=== PATIENT | female | born 1955 | race Caucasian/White ===

== ENCOUNTER → 2016-10-30 | Outpatient (CLI) | payer MEDICARE ==
[~2016-10-30] MED LIST: /DULO30CA OR; HYDR25TA6 OR; OXYC10TA97 OR; PERC5TAB8 OR; SOMA350T OR; TRAZ50TA OR; XANA0.5T OR
--- NOTE | 2016-10-31 10:18 | DEXA ---
AP SPINE L1 - L4 1.055 -1.1 0.1 LT FEMUR TOTAL 0.773 -1.9 -0.9 RT FEMUR TOTAL 0.764 -1.9 -1.0 TOTAL BODY TOTAL OTHER DUAL FEMUR FRAX* ASSESSMENT Risk factors: Premature menopause, adult fracture. 10 year probability of fracture Major osteoporotic fracture 21.2 % Hip fracture 3.2 % COMMENTS: There is low bone density of the spine and hips. The density of the spine has decreased 19.2% since the initial exam on 02/2009. The spine density has decreased 2.2% since the most recent exam on 10/2014. The density of the left hip has decreased 8.3% since the initial exam on 02/2009. Density of the left hip has increased 0.8% since the most recent exam on 10/2014. The density of the right hip has decreased 9.6% since the initial exam on 2008. The density of the right hip has increased 1.3% since the most recent exam on 2014. FOLLOW-UP: Recommendation for the next bone density exam: 2 years. KENNY
== END | disposition home or self-care (01) ==
LOC: M WHC 11:09
PROVIDERS: ATTEND Nurse Practitioner Family
DX: C50.919 Malignant neoplasm of unspecified site of unspecified female breast (principal); M85.9 Disorder of bone density and structure, unspecified

== ENCOUNTER → 2016-11-06 | Outpatient (REF) | payer MEDICARE | END | disposition home or self-care (01) | LOC: M LAB REF 13:08 | PROVIDERS: ATTEND Internal Medicine Medical Oncology | DX: C50.919 Malignant neoplasm of unspecified site of unspecified female breast (principal) ==

== ENCOUNTER → 2017-01-01 | Outpatient (REF) | payer MEDICARE ==
[2017-01-01 12:44] LABS: CREATININE FOR GFR 1.23 MG/DL (0.55-1.02); GLOMERULAR FILTRATION RATE 47.4 (>45)
== END ==
LOC: M LABDRAW1 11:46
PROVIDERS: ATTEND Orthopaedic Surgery
DX: M75.42 Impingement syndrome of left shoulder (principal)

== ENCOUNTER → 2017-01-17 | Outpatient (REF) | payer MEDICARE ==
[2017-01-17 14:21] LABS: BASO % 0.3 % (0.0-1.0); EOS # 0.1 K/mm3 (0.0-0.50); EOS % 2.9 % (0.0-3.0); LARGE UNSTAINED CELL # 0.1 K/mm3 (0.0-0.4); LARGE UNSTAINED CELL % 1.7 % (0.0-4.0); LYMPH # 0.9 K/mm3 (1.5-4.5); LYMPH % 20.2 % (24.0-44.0); MEAN CORPUSCULAR HEMOGLOBIN 32.1 pg (27.0-33.0); MEAN CORPUSCULAR HGB CONC 33.7 g/dl (32.0-36.5); MEAN CORPUSCULAR VOLUME 95.3 fl (80.0-96.0); MONO # 0.3 K/mm3 (0.0-0.8); MONO % 6.8 % (0.0-5.0); NEUTROPHILS # 2.9 K/mm3 (1.8-7.7); NEUTROPHILS % 68.1 % (36.0-66.0); PLATELET COUNT, AUTOMATED 196 k/mm3 (150-450); WHITE BLOOD COUNT 4.2 K/mm3 (4.0-10.0)
[2017-01-17 14:56] LABS: ERYTHROCYTE SEDIMENTATION RATE 12 mm/hr (0-30)
[2017-01-19 00:06] LABS: Lyme Disease IgG/IgM Antibodie <0.91 ISR (0.00-0.90); Lyme Disease IgM Ab Quantitati <0.80 index (0.00-0.79)
== END ==
LOC: M LABDRAW1 13:07
PROVIDERS: ATTEND Orthopaedic Surgery
DX: M75.42 Impingement syndrome of left shoulder (principal); Z79.899 Other long term (current) drug therapy

== ENCOUNTER → 2018-09-01 | Outpatient (CLI) | payer MEDICARE | LOC: M RAD 09:37 | DX: C50.119 Malignant neoplasm of central portion of unspecified female breast (principal); M54.5 Low back pain | CPT/HCPCS: 78306 ==

== ENCOUNTER → 2018-12-16 | Outpatient (REF) | payer MEDICARE ==
[~2018-12-16] MED LIST changes: +ALPR2TAB3 PO; +AZEL1SPR3 NARES; +DULC5TAB PO; +HYDR-4514 PO; +LETR2.5T2 PO; +LOSA50TA88 PO; +MELO15TA28 PO; +MULTCAP PO; +TRAZ1TAB14 PO; +VENL75CA47 PO; +VITA500064 PO; +[UNRECOGNIZED DRUG - CODE] PO
[2018-12-18 14:22] LABS: HPV HYBRID CAPTURE II Negative (Negative)
== END ==
LOC: M LAB REF 17:28
PROVIDERS: ATTEND Family Medicine
DX: Z12.4 Encounter for screening for malignant neoplasm of cervix (principal); Z11.51 Encounter for screening for human papillomavirus (HPV); N95.2 Postmenopausal atrophic vaginitis
CPT/HCPCS: 87624; G0123

== ENCOUNTER → 2019-02-03 | Outpatient (CLI) | payer MEDICARE ==
[~2019-02-03] MED LIST changes: -/DULO30CA OR; +CYMB1CAP5 OR; +VITA500075 PO; -[UNRECOGNIZED DRUG - CODE] PO
--- NOTE | 2019-02-03 16:00 | REPMRS ---
Patient History The patient states she had a clinical breast exam in 09/2018. Patient is postmenopausal, has history of breast cancer at age 58, has history of cancer in the right breast at age 58, and had previous chemotherapy at age 58. No known family history of cancer. Malignant excisional biopsy of the right breast, 2013. Radiation therapy of the right breast, 2013. Taking letrozole for 4 years. Digital Woman Screen Mammo: February 03, 2019 - Exam #: [id number] Bilateral CC and MLO view(s) were taken. Technologist: Tania Whitney, Technologist Prior study comparison: February 02, 2018, bilateral digital mammo screening bilat, performed at [facility]. January 13, 2017, bilateral digital woman screen mammo, performed at [facility]. January 12, 2016, bilateral digital woman screen mammo, performed at [facility]. FINDINGS: The breast tissue is heterogeneously dense. This may lower the sensitivity of mammography. There is a needle biopsy marker clip again noted in the upper outer quadrant of the left breast. There is a moderate amount of heterogeneously dense fibroglandular tissue which is fairly symmetric. There is no interval development of dominant mass, architectural distortion, or clustered microcalcification typical of malignancy. There has been no change in the appearance of the mammogram from the prior studies. 3-D tomosynthesis shows no additional findings. Assessment: BI-RADS/ACR category 2 mammogram. Benign Findings. Recommendation Routine screening mammogram of both breasts in 1 year (for women over age 40). This mammogram was interpreted with the aid of an FDA-approved computer-aided dectection system. Electronically Signed By: Magnus Castellanos MD 02/03/19 [id number]
--- NOTE | 2019-02-05 11:22 | DEXA ---
AP SPINE L1 - L4 1.113 -0.7 0.7 LT FEMUR TOTAL 0.674 -2.6 -1.6 LT NECK 0.633 -2.9 -1.6 RT FEMUR TOTAL 0.674 -2.6 -1.6 RT NECK 0.705 -2.4 -1.0 TOTAL BODY TOTAL OTHER COMMENTS: Normal bone densitometry of the spine. There is osteoporosis of the hips. The density of the spine has decreased 14.8% since the initial exam on 03/09/2009. The spine density has increased 5.5% since the most recent exam on 10/30/2016. The density of the left hip has decreased 20.0% since the initial exam on 03/09/2009. The density of the left hip has decreased 12.8% since the most recent exam on 10/30/2016. The density of the right hip has decreased 20.2% since the initial exam on 03/09/2009. The density of the right hip has decreased 11.8% since the most recent exam on 10/30/2016. FOLLOW-UP: Recommendation for the next bone density exam: 2 years. KENNY
== END ==
LOC: M WHC 10:46
PROVIDERS: ATTEND Internal Medicine Medical Oncology
DX: Z12.31 Encounter for screening mammogram for malignant neoplasm of breast (principal); M81.0 Age-related osteoporosis without current pathological fracture

== ENCOUNTER → 2019-03-16 | Outpatient (REF) | payer MEDICARE | LOC: M LAB REF 17:31 | PROVIDERS: ATTEND Family Medicine | DX: D48.5 Neoplasm of uncertain behavior of skin (principal) ==

== ENCOUNTER → 2019-05-31 | Outpatient (REF) | payer MEDICARE ==
[~2019-05-31] MED LIST changes: +FLON1SPR NARES
== END ==
LOC: M LAB LCGH 15:02
PROVIDERS: ATTEND Nurse Practitioner Family
DX: D48.9 Neoplasm of uncertain behavior, unspecified (principal)

== ENCOUNTER → 2019-08-05 | Outpatient (CLI) | payer MEDICARE ==
[~2019-08-05] MED LIST changes: +E-Z-GAS II EFFERVESCENT PACKET (SODIUM BICARB./CITRIC ACID/SIMETHICONE) As Ordered ONE; +E-Z-HD 98% w/w 340GM SUSP BTL As Ordered ONE; +E-Z-PAQUE 96% w/w SUSP 176GM BTL As Ordered ONE
--- NOTE | 2019-08-05 18:28 | REP ---
Examination Requested: Esophagram Barium Swallow Reason For Exam/Comment: Gastroesophageal reflux Esophagram: The procedure was performed AMADA Osborne, under the direct supervision of Dr. Castellanos. The images were reviewed with Dr. Castellanos. A single PA chest x-ray is submitted as a vamp creaser film. The superior mediastinal structures are midline. The heart size is within normal limits. The lungs are clear. There is a healing rib fracture of the lateral 7th rib. Cervical degenerative disc disease with osteophyte formation of the anterior C6-7 vertebral bodies. Liquid barium and gas producing granules were given in the erect position as well as liquid barium in the prone oblique position, in order to perform a double contrast esophagram examination. Oral and pharyngeal stages of the examination were unremarkable. Esophageal transport is efficient and there is no esophagitis, stricture, or mucosal ring noted. There is no hiatal hernia noted. Gastroesophageal reflux was visualized to the level of the thoracic inlet. Impression: 1. Gastroesophageal reflux noted to the level of the thoracic inlet. 2. Cervical degenerative disc disease as described above. 3. Healing rib fracture of the 7th lateral rib. 0.8 minutes of fluoroscopy time was utilized for this procedure. Some fluoroscopic images are performed with last image hold technology. These images require no additional radiation. Reviewed by AMADA Knox 08/05/2019 04:27 P Electronically Signed by Checo Castellanos MD 08/05/2019 06:17 P
== END ==
LOC: M RAD 09:00
PROVIDERS: ATTEND Otolaryngology
DX: K21.9 Gastro-esophageal reflux disease without esophagitis (principal); M50.323 Other cervical disc degeneration at C6-C7 level; S22.39XD Fracture of one rib, unspecified side, subsequent encounter for fracture with routine healing; X58.XXXD Exposure to other specified factors, subsequent encounter; Y92.9 Unspecified place or not applicable

== ENCOUNTER 2021-03-03 17:34 | Inpatient (IN) | payer MEDICARE ==
[~2021-03-03] VITALS: Ht 162.6 cm; Wt 69.0 kg
[~2021-03-03 17:34] MED LIST changes: -E-Z-GAS II EFFERVESCENT PACKET (SODIUM BICARB./CITRIC ACID/SIMETHICONE) As Ordered ONE; -E-Z-HD 98% w/w 340GM SUSP BTL As Ordered ONE; -E-Z-PAQUE 96% w/w SUSP 176GM BTL As Ordered ONE
[2021-03-03] MEDS: NS 1,000 ML IV SCH ×2 (17:45→17:50)
[2021-03-03 18:22] LABS: BASO % 0.4 % (0.0-1.0); EOS # 0.1 10^3/uL (0.0-0.5); EOS % 1.2 % (0.0-3.0); HEMATOCRIT 38.3 % (36.0-47.0); HEMOGLOBIN 12.5 g/dl (12.0-15.5); LYMPH # 1.4 10^3/uL (1.5-5.0); LYMPH % 29.3 % (24.0-44.0); MEAN CORPUSCULAR HEMOGLOBIN 31.4 pg (27.0-33.0); MEAN CORPUSCULAR HGB CONC 32.6 g/dl (32.0-36.5); MEAN CORPUSCULAR VOLUME 96.2 fl (80.0-96.0); MONO # 0.6 10^3/uL (0.0-0.8); MONO % 11.2 % (2.0-8.0); NEUTROPHILS # 2.8 10^3/uL (1.5-8.5); NEUTROPHILS % 57.7 % (36.0-66.0); PLATELET COUNT, AUTOMATED 218 10^3/uL (150-450); RED BLOOD COUNT 3.98 10^6/uL (4.00-5.40); WHITE BLOOD COUNT 4.9 10^3/uL (4.0-10.0)
[2021-03-03] MEDS ORDERED: PANTOPRAZOLE 40MG VIAL (C9113 PER 1) IV ONE (18:30)
[2021-03-03 19:02] LABS: ACETAMINOPHEN LEVEL < 2.0 UG/ML (10.0-30.0); ALBUMIN 4.2 GM/DL (3.2-5.2); ALT/SGPT 16 U/L (12-78); BILIRUBIN,DIRECT < 0.1 MG/DL (0.0-0.2); BILIRUBIN,TOTAL 0.2 MG/DL (0.2-1.0); BLOOD UREA NITROGEN 19 MG/DL (7-18); CALCIUM LEVEL 8.9 MG/DL (8.8-10.2); CARBON DIOXIDE LEVEL 30 MEQ/L (21-32); CHLORIDE LEVEL 102 MEQ/L (98-107); CPK CREATINE PHOSPHOKINASE 96 U/L (26-192); CREATININE FOR GFR 0.97 MG/DL (0.55-1.30); ETHYL ALCOHOL (ETHANOL) 0.194 % (0.000-0.010); GLOMERULAR FILTRATION RATE > 60.0 (>45); GLUCOSE, FASTING 92 MG/DL (70-100); SALICYLATE LEVEL < 1.7 MG/DL (5.0-30.0); SODIUM LEVEL 140 MEQ/L (136-145); TOTAL PROTEIN 7.3 GM/DL (6.4-8.2)
[2021-03-03 19:35] LABS: AMPHETAMINES LEVEL URINE NEGATIVE (NEGATIVE); BARBITURATES URINE NEGATIVE (NEGATIVE); BENZODIAZEPINES URINE POSITIVE (NEGATIVE); CANNABINOIDS URINE NEGATIVE (NEGATIVE); COCAINE METABOLITE URINE NEGATIVE (NEGATIVE); METHADONE URINE NEGATIVE (NEGATIVE); OPIATES URINE POSITIVE (NEGATIVE); PHENCYCLIDINE URINE NEGATIVE (NEGATIVE)
[2021-03-04] MEDS: NS 1,000 ML IV SCH ×5 (00:30→13:50)
[2021-03-04] MEDS ORDERED: LORazepam 2 MG TAB PO PRN ×2 (07:10→10:25)
[2021-03-04] MEDS ORDERED: OMEP-221 PO (07:16)
--- NOTE | 2021-03-04 07:56 | ECGEPIP ---
[facility] - ED Test Date: 2021-03-03 Pat Name: RAY LOPEZ Department: Room: - Gender: Female Vp Lab: LR : [id number] Requested By: Evelyn Frankel Order Number: [id number] Reading MD: Evelyn Frankel Measurements Intervals [place] Rate: 69 P: 32 DE: 186 QRS: 8 QRSD: 80 T: 22 QT: 422 QTc: 452 Interpretive Statements Normal sinus rhythm NSTTW abnormalities No prior Electronically Signed on 03-04-2021 7:56:35 EDT by Evelyn Frankel
[2021-03-04] MEDS ORDERED: D3 M1CAP2 PO (08:00)
[2021-03-04] MEDS ORDERED: THERTAB65 PO (08:00)
[2021-03-04] MEDS ORDERED: VENL150C43 PO (08:00)
[2021-03-04] MEDS ORDERED: HYDR-4517 PO (08:00)
[2021-03-04 08:51] VITALS: BP 151/83
[2021-03-04] MEDS ORDERED: THIAMINE 100 MG TAB PO SCH (09:00)
[2021-03-04] MEDS ORDERED: LOSARTAN 50MG TABLET PO ONE (09:00)
[2021-03-04] MEDS ORDERED: MULTIVITAMINS/MINERALS THERAP 1 TAB PO SCH (09:00)
[2021-03-04] MEDS ORDERED: FOLIC ACID 1 MG TAB PO SCH (09:00)
[2021-03-04] MEDS ORDERED: VENLAFAXINE **XR** 75MG CAPSULE PO ONE (09:00)
[2021-03-04] MEDS ORDERED: OMEPRAZOLE 20 MG CAP PO ONE (09:00)
[2021-03-04] MEDS ORDERED: ACETAMINOPHEN TAB 650MG DOSE (2X325MG) PO PRN (10:25)
[2021-03-04] MEDS ORDERED: MOM 30ML SUSPENSION UDC PO PRN (10:25)
[2021-03-04] MEDS ORDERED: traZODone 50 MG TAB PO PRN (10:25)
[2021-03-04] MEDS ORDERED: MAALOX 30 ML SUSP *UDC PO PRN (10:25)
[2021-03-04] MEDS ORDERED: NORCO, ANEXSIA 5/325MG TABLET (HYDROcodone/ACETAMINOPHEN) PO ONE (11:15)
[2021-03-04] MEDS ORDERED: CLOB0.057 TOP (11:55)
[2021-03-04 14:23] VITALS: BP 138/82
[2021-03-04] MEDS ORDERED: clonazePAM 1 MG TAB PO SCH (20:50)
[2021-03-04] MEDS: THIAMINE 100 MG TAB PO SCH (21:00)
[2021-03-04] MEDS ORDERED: traZODone 50 MG TAB PO ONE (21:00)
[2021-03-04] MEDS: NORCO, ANEXSIA 5/325MG TABLET (HYDROcodone/ACETAMINOPHEN) PO PRN (21:04)
[2021-03-04 21:10] VITALS: BP 142/79
[2021-03-04] MEDS: clonazePAM 1 MG TAB PO PRN (21:11)
[2021-03-05 05:14] VITALS: BP 144/88
[2021-03-05 06:31] VITALS: BP 144/88
[2021-03-05] MEDS: THIAMINE 100 MG TAB PO SCH ×2 (08:51→20:20)
[2021-03-05] MEDS: MULTIVITAMINS/MINERALS THERAP 1 TAB PO SCH (08:51)
[2021-03-05] MEDS: FOLIC ACID 1 MG TAB PO SCH (08:51)
[2021-03-05] MEDS: NORCO, ANEXSIA 5/325MG TABLET (HYDROcodone/ACETAMINOPHEN) PO PRN ×2 (08:52→15:30)
--- NOTE | 2021-03-05 10:28 | MHHPEPDOC ---
General Date Of Admission: March 04, 2021 Legal Status: 9.39 Chief Complaint My overreacted. I took several pills with 2 vodka shots to get some rest some rest. History of Present Illness HISTORY OF THE PRESENT ILLNESS: Patient is a 65 -year-old , female, who [has no previous psychiatric history brought the emergency room by her after she took her bedtime. Trazodone tablet and 2 Xanax tablets and drank 2 vodka shots. Patient stated that she is been having slightly depressed mood and having trouble sleeping]. After her 88-year-old mother in October of this year in a rehabilitation facility. She lost her father 2 years of an combined with her mother's . She was feeling a little down at times and said that times and having trouble sleeping. When she took those pills and drank. She just wanted to have a decent night of sleep and had no intention of overdose or suicide. Her took it very serious and immediately brought her to the emergency room and she was admitted on 939 status. She is pleasant, organized and animated and very spontaneous in response and in no acute distress except for chronic back pain. She denied any serious depressed mood disorder has been able to do her housework and strongly denies any suicidal intent and also denies any need for antidepressant treatment. She is been taking her trazodone and the Xanax at nighttime, prescribed by her primary care doctor, mainly for her insomnia and denies any history of serious depression. Psychiatric Review of Systems Depression (2 or more weeks): insomnia/hypersomnia Laura (4 or more days of): denies Psychosis: denies PTSD: denies Anxiety: situational anxiety Past Psychiatric History Previous Psychiatric Diagnosis: [No history of psychiatric treatment]. Previous Psychiatric Admissions: [None]. Suicide Attempts: [Never]. Psychiatric Follow-up: [, Not in any outpatient counseling]. Psychiatric medications: [Takes Xanax and trazodone for sleep]. Past Medical History Medical Problems Chronic back pain since 1987 and has been prescribed hydrocodone and doesn't want to have any surgery Head Injury: No Seizures: No Hospitalizations: No Surgeries: No Family Medical/Psychiatric HX Psychiatric Disorders: No Addiction: No Suicide Attemps/Completions: No Addiction History denies Social History Childhood: [Unremarkable]. Abuse/Trauma:[None]. Current Living Situation: [Lives with her of 25 years in [facility]]. Education: [Some college]. Employment: [Retired from [employer]]. Social Support: []. Legal: [None]. Marital: [, for the third time with a current for 25 years and reports very good marriage. Has 3 children from a previous marriage.]. Mental Status Examination General Appearance: well groomed, appears stated age Build: average Demeanor: average Eye Contact: average Activity: average Behavior: cooperative Speech: clear, normal volume Mood: euthymic, anxious Affect: full, appropriate, congruent Thought Process: logical/linear Thought Content (Delusions): none reported Thought Content (Other): none reported Thought Content (Aggressive): none reported Perception (Hallucinations): none reported Perception (Other): none reported Cognition (Impairment of): none reported Cognition(Intelligence Est.): average Oriented: Awake, Alert, Oriented times three Insight: good Judgment: Fair Psychosis: Denies Diagnoses Adjustment disorder with anxious mood A-FIB/CHADSVASC A-FIB History Current/History of A-Fib/PAF?: No Current PO Anticoag Therapy: No Age/Risk Factor Scoring CHADSVASC: CHADSVASC Response (Comments) Value Gender Risk Factor Female 1 Hx of CHF No 0 Hx of HTN No 0 Hx of Stroke/TIA/or VTE No 0 Hx of Diabetes No 0 Hx of Vascular Disease No 0 Total 1 Treatment Treatment ordered: NONE Assessment The patient doesn't appear to be clinically depressed and had some anxious mood from the recent loss of her mother. Patient strongly denies any suicidal thoughts and presented with appropriate affect and pleasant manner and doesn't want any psychotropic medications and does not appear to be acutely suicidal Initial Treatment Plan 1. Patient was admitted on a 939 status. 2. Complete history was obtained. 3. With patients permission, family will be contacted and database will be expanded. 4. Patients medication regimen will be reviewed and changed accordingly. 5. Patient will be provided with protected environment. 6. Patient will be treated with individual, group, and milieu therapies. 7. Patient will receive supportive psych-education. 8. Discharge planning will commence immediately. 9. Outpatient follow-up treatment will be strongly recommended. 10. The initial treatment plan will focus initially on: * Depression. * Risk for suicide. ESTIMATED LENGTH OF STAY: 2-3 DAYS. TIME SPENT COUNSELING AND COORDINATING INITIAL CARE: 45 minutes. Tobacco Cessation Screen If Patient is a Smoker . Nonsmoker N/A-No Antipsychotics Vital Signs Vital Signs Date Time Temp Pulse Resp B/P (MAP) Pulse Ox O2 Delivery O2 Flow Rate FiO2 03/05/21 08:52 16 03/05/21 06:31 97.6 73 144/88 (106) 96 Room Air 03/03/21 20:04 1.0 Medications Scheduled Alprazolam (Alprazolam) 2 Mg Tab, 2 MG PO QPM, (Reported) Cholecalciferol (Vitamin D3) (Vitamin D3) 125 Mcg Capsule, 125 MCG PO DAILY, (Reported) Clobetasol Propionate (Clobetasol Propionate) 0.05% 50ML Solution, 1 APPLIC TOP BID, (Reported) APPLY TO AFFECTED AREA ON SCALP AND RIGHT EAR Losartan Potassium (Losartan Potassium) 50 Mg Tab, 50 MG PO DAILY, (Reported) M-Vit,Tx,Iron,Mins/Calc/Folic (Thera-M Caplet) 1 Each Tablet, 1 EACH PO DAILY, (Reported) Meloxicam (Meloxicam) 15 Mg Tab, 15 MG PO DAILY, (Reported) Omeprazole (Omeprazole) 40 Mg Capsule.dr, 40 MG PO DAILY, (Reported) Trazodone HCl (Trazodone HCl) 150 Mg Tab, 150 MG PO QHS, (Reported) Venlafaxine HCl (Venlafaxine HCl ER) 150 Mg Cap.er.24h, 150 MG PO DAILY, (Reported) Scheduled PRN Azelastine HCl (Azelastine HCl) 0.1 % Spr, 2 SPRAY NARES DAILY PRN for CONGESTION, (Reported) Hydrocodone/Acetaminophen (Hydrocodone-Acetamin 10-325 mg) 1 Each Tablet, 1 TAB PO QID PRN for PAIN, (Reported) Miscellaneous Medications Cyanocobalamin (Vitamin B-12) (Vitamin B-12) 5,000 Mcg Tab, 5,000 MCG PO, (Reported) Allergies Coded Allergies: meperidine (Verified Allergy, Mild, Rash, 02/15/19) CIARA BRITO M.D. March 05, 2021 10:28
[2021-03-05 13:15] VITALS: BP 142/76
[2021-03-05 17:31] VITALS: BP 142/92
[2021-03-05] MEDS: clonazePAM 1 MG TAB PO PRN (20:20)
[2021-03-05] MEDS: CLOBETASOL PROP 0.05% OINT 30 GM TOP SCH (20:20)
[2021-03-06] MEDS: NORCO, ANEXSIA 5/325MG TABLET (HYDROcodone/ACETAMINOPHEN) PO PRN (06:35)
[2021-03-06 06:52] VITALS: BP 150/108
--- NOTE | 2021-03-06 07:49 | MHDSPDOC ---
[facility] Discharge Summary Discharge Summary DATE OF ADMISSION: March 04, 2021 at 10:21 DATE OF DISCHARGE: 03/06/2021 DISCHARGE DIAGNOSES: 1. [Adjustment disorder with mixed emotion]. 2. . REASON FOR ADMISSION: [The patient was admitted after she took 2 over her prescribed Xanax 2 mg tablets and 1. Trazodone 150 mg tablet along with 2 shots of vodka. She was brought to emergency room by her and admitted on 939 status to further evaluate her lethality concern.] CONSULTANTS INVOLVED: [None] TREATMENT AND PROGRESS ON THE UNIT : [The patient was seen for daily supportive therapy and lethality evaluation. She strongly denied any suicidal intent report that her overreacted and she only took those to get some sleep and rest. She admits to having mild depression, especially after her mother in October of this year. She denies having any ongoing alcohol abuse. Denies any changes in her energy, concentration, and denies any serious depressed mood. She has no history of suicidal attempt and hasn't been receiving Xanax, trazodone and Effexor from her family doctor for the anxiety and mild depression associated with the chronic back pain and the loss of her parents. She remained in good control showing animated affect appropriate, and continued to deny any suicidal thoughts and is anxious to be discharged.]. HOSPITAL COURSE: [Uneventful inpatient stay. She didn't show any suicidal behavior and showing appropriate, animated. Affect and very pleasant and coope rative and didn't have any alcohol or withdrawal symptoms and denies any alcohol abuse issues. She will be discharged home with the recommendation for outpatient counseling services] DISCHARGE ASSESSMENT: Improved, stable, and no suicidal MENTAL STATUS EXAMINATION ON DISCHARGE: Patient is a [65]-year old female, who is [, pleasant and appropriate]. Speech is [rational, coherent]. Language skills are [good]. Thought processes including: [Well organized]. Thought content: [No serious depression or suicidal thoughts]. Abstract reasoning, and computation: [Good]. Description of associations: [Good]. Description of abnormal or psychotic thoughts: [None]. Judgment: [, Fair]. Insight: [Good]. Orientation to [well oriented]. Recent and remote memory: [Good]. Attention span and concentration: Put. Language: . Fund of knowledge: [Average]. Mood: [Only mildly anxious]. Affect: [, Appropriate, animated, with good range]. MEDICATIONS ON DISCHARGE: None - for . - for . - for . PLAN/FOLLOWUP ARRANGEMENTS: [As arranged by the facility planner]. The amount of time spent in the coordination of care for this patient was appr oximately [35] minutes. ETOH/Disorder Med Rx ETOH/DRUG DISORDER RX: N/A Vital Signs/I&Os Vital Signs Date Time Temp Pulse Resp B/P (MAP) Pulse Ox O2 Delivery O2 Flow Rate FiO2 03/06/21 06:52 96.9 60 20 150/108 (122) 95 Room Air 03/03/21 20:04 1.0 Laboratory Data Microbiology Microbiology 03/04/21 Respiratory Virus Panel (PCR) (RAD[facility]) - Final, Complete Medications Scheduled Alprazolam (Alprazolam) 2 Mg Tab, 2 MG PO QPM, (Reported) Cholecalciferol (Vitamin D3) (Vitamin D3) 125 Mcg Capsule, 125 MCG PO DAILY, (Reported) Clobetasol Propionate (Clobetasol Propionate) 0.05% 50ML Solution, 1 APPLIC TOP BID, (Reported) APPLY TO AFFECTED AREA ON SCALP AND RIGHT EAR Losartan Potassium (Losartan Potassium) 50 Mg Tab, 50 MG PO DAILY, (Reported) M-Vit,Tx,Iron,Mins/Calc/Folic (Thera-M Caplet) 1 Each Tablet, 1 EACH PO DAILY, (Reported) Meloxicam (Meloxicam) 15 Mg Tab, 15 MG PO DAILY, (Reported) Omeprazole (Omeprazole) 40 Mg Capsule.dr, 40 MG PO DAILY, (Reported) Trazodone HCl (Trazodone HCl) 150 Mg Tab, 150 MG PO QHS, (Reported) Venlafaxine HCl (Venlafaxine HCl ER) 150 Mg Cap.er.24h, 150 MG PO DAILY, (Reported) Scheduled PRN Azelastine HCl (Azelastine HCl) 0.1 % Spr, 2 SPRAY NARES DAILY PRN for CONGESTION, (Reported) Hydrocodone/Acetaminophen (Hydrocodone-Acetamin 10-325 mg) 1 Each Tablet, 1 TAB PO QID PRN for PAIN, (Reported) Miscellaneous Medications Cyanocobalamin (Vitamin B-12) (Vitamin B-12) 5,000 Mcg Tab, 5,000 MCG PO, (Reported) Allergies Coded Allergies: meperidine (Verified Allergy, Mild, Rash, 02/15/19) CIARA BRITO M.D. March 06, 2021 07:49
[2021-03-06] MEDS: MULTIVITAMINS/MINERALS THERAP 1 TAB PO SCH (08:43)
[2021-03-06] MEDS: FOLIC ACID 1 MG TAB PO SCH (08:43)
[2021-03-06] MEDS: THIAMINE 100 MG TAB PO SCH (08:43)
[2021-03-06] MEDS: CLOBETASOL PROP 0.05% OINT 30 GM TOP SCH (08:44)
== END 2021-03-06 11:00 | disposition home or self-care (01) | DRG 882 ==
LOC: M ED 17:34 → EDBD 17:34 → M ED INP 03-04 10:21 → M PSY 03-04 14:20
PROVIDERS: ADMIT Psychiatry & Neurology Psychiatry; ATTEND Psychiatry & Neurology Psychiatry
DX: F43.22 Adjustment disorder with anxiety (principal); Z63.4 Disappearance and death of family member; M54.9 Dorsalgia, unspecified; G89.29 Other chronic pain; Z88.8 Allergy status to other drugs, medicaments and biological substances; Z20.822 Contact with and (suspected) exposure to COVID-19

== ENCOUNTER → 2021-03-13 | Outpatient (CLI) | payer MEDICARE ==
[~2021-03-13] MED LIST changes: +CLOB0.057 TOP; +D3 M1CAP2 PO; +HYDR-4517 PO; +OMEP-221 PO; +THERTAB65 PO; +VENL150C43 PO
--- NOTE | 2021-03-13 09:53 | DEXAMM ---
INDICATION: Z13.820 SCREENING OSTEOPOROSIS. COMPARISON: Most recent comparison study is dated February 03, 2019. The most remote is from March 09, 2009.. TECHNIQUE: Bone density was measured using dual-energy x-ray absorptionmetry (DEXA). FINDINGS: AP SPINE L1-L4 BMD 1.070 g/cm2 Young Adult T-Score -1.0 Age Matched Z-Score 0.6. LT FEMUR, TOTAL BMD 0.666 g/cm2 Young Adult T-Score -2.7 Age Matched Z-Score -1.5. LT NECK BMD 0.683 g/cm2 Young Adult T-Score -2.6 Age Matched Z-Score is -1.1. RT FEMUR, TOTAL BMD 0.679 g/cm2 Young Adult T-Score -2.6 Age Matched Z-Score -1.4. RT NECK BMD 0.707 g/cm2 Young Adult T-Score -2.4 Age Matched Z-Score -0.9. IMPRESSION: There is low bone density of the spine. There is osteoporosis of the left hip. There is osteoporosis of the right hip. The density of the spine has decreased 18.1% since the initial exam on March 09, 2009. The density of the spine decreased 3.9% since most recent exam on February 03, 2019. The density of the left hip has decreased 21.0% since initial exam on March 09, 2009. The density of the left hip has decreased 1.2% since most recent exam on February 03, 2019. The density of the right hip has decreased 19.6% since the initial exam on March 09, 2009. The density of the right hip has increased 0.7% since the most recent exam on February 03, 2019. FOLLOW-UP: Recommendation for the next bone density exam: 2 years. <Electronically signed by Magnus Castellanos > 03/13/21 0949
== END ==
LOC: M WHC 08:20
PROVIDERS: ATTEND Family Medicine
DX: Z13.820 Encounter for screening for osteoporosis (principal); M81.0 Age-related osteoporosis without current pathological fracture

== ENCOUNTER → 2021-03-21 | Outpatient (CLI) | payer MEDICARE ==
--- NOTE | 2021-03-21 11:17 | REP ---
INDICATION: ACUTE KIDNEY FAILURE COMPARISON: None TECHNIQUE: Real time menendez scale ultrasound examination using curved array transducer. FINDINGS: Right kidney is normal in reniform shape and measures 9.6 x 5.0 x 4.9 cm. No hydronephrosis, nephrolithiasis, cystic or renal mass lesion. The left kidney is limited in evaluation due to interposed bowel gas and technical factors. Bladder is nondistended. IMPRESSION: 1. Normal appearance of the right kidney. 2. Left kidney is incompletely evaluated. <Electronically signed by Julien Zapata > 03/21/21 1110
== END ==
LOC: M RAD 10:39
PROVIDERS: ATTEND Family Medicine
DX: N17.9 Acute kidney failure, unspecified (principal)